=== PATIENT | female | born 1995 | race Two or more races ===

== ENCOUNTER 2024-03-12 15:46 | Emergency (ER) | payer OTHER ==
[~2024-03-12] VITALS: Ht 149.9 cm; Wt 51.4 kg
[2024-03-12 18:10] LABS: BASOPHILS % (AUTO) 0.1 % (0.0-2.0); EOSINOPHILS % (AUTO) 0.7 % (1.0-6.0); HEMOGLOBIN 13.1 g/dL (12.0-16.0); LYMPHOCYTES # (AUTO) 2.1 K/uL (1.0-4.8); LYMPHOCYTES % (AUTO) 18.8 % (22.0-44.0); MEAN CORPUSCULAR HEMOGLOBIN 31.3 pg (26.0-34.0); MEAN CORPUSCULAR HGB CONC 32.8 G/dL (31.0-37.0); MEAN CORPUSCULAR VOLUME 96 fL (80-100); MONOCYTES # (AUTO) 0.4 K/uL (0.1-1.0); MONOCYTES % (AUTO) 3.8 % (2.0-9.0); NEUTROPHILS # (AUTO) 8.5 K/uL (1.8-7.7); NEUTROPHILS % (AUTO) 76.6 % (40.0-70.0); PLATELET COUNT (AUTO) 257 K/uL (150-450); RED BLOOD CELL COUNT(AUTO) 4.19 MIL/uL (4.00-5.20); RED CELL DISTRIBUTION WIDTH 12.7 % (11.5-14.5); WHITE BLOOD COUNT (AUTO) 11.1 K/uL (4.5-11.0)
[2024-03-12 18:22] LABS: ANION GAP 6 mmol/L (8-16); CALCIUM, TOTAL 9.9 mg/dL (8.8-10.5); CARBON DIOXIDE 31 mmol/L (22-29); CHLORIDE 104 mmol/L (98-107); CREATININE 0.58 mg/dL (0.60-1.30); GLOMERULAR FILTR. RATE CALC > 60 mL/min (>60); GLUCOSE,RANDOM 89 mg/dL (70-110); POTASSIUM 4.2 mmol/L (3.5-5.1); SODIUM SERUM 141 mmol/L (136-145); UREA NITROGEN, BLOOD 19 mg/dL (7-18)
[2024-03-12 18:31] LABS: HCG,QUANTITATIVE 2 mIU/mL (0-6); LIPASE 67 U/L (16-77)
[2024-03-12 19:28] LABS: APPEARANCE,URINE HAZY (CLEAR); BILIRUBIN,URINE NEGATIVE (NEGATIVE); COLOR,URINE YELLOW (YELLOW); GLUCOSE, URINE (UA) NEGATIVE (NEGATIVE); LEUKOCYTE ESTERASE ,URINE LARGE (NEGATIVE); NITRATE,URINE NEGATIVE (NEGATIVE); OCCULT BLOOD,URINE SMALL (NEGATIVE); PH,URINE 5.5 (5.0-8.0); PROTEIN,URINE 30-70 mg/dL (NEGATIVE); UROBILINOGEN,URINE <=1.0 mg/dL (<=1.0)
[2024-03-12 19:41] LABS: BACTERIA,URINE Moderate /HPF (None Seen); SQUAMOUS EPITHELIAL CELL,UR Moderate /LPF (None Seen); WBC,URINE 26-50 /HPF (0-5)
[2024-03-12 20:01] LABS: ALBUMIN 4.3 g/dL (3.4-5.0); BILIRUBIN,DIRECT 0.1 mg/dL (0.00-0.20); BILIRUBIN,TOTAL 0.3 mg/dL (0.1-1.0); TOTAL PROTEIN, SERUM 8.2 g/dL (6.4-8.2)
[2024-03-12] MEDS: ONDANSETRON HCL 4 MG/2 ML VIAL IVP ONE (20:24)
[2024-03-12] MEDS: SODIUM CHLORIDE 0.9% 1,000 ML IV ONE (20:24)
[2024-03-12] MEDS: FAMOTIDINE 20 MG/2 ML VIAL IVP ONE (20:24)
[2024-03-12] MEDS ORDERED: ONDA-104 PO (21:40)
[2024-03-12] MEDS ORDERED: CEPH-558 PO (21:40)
[2024-03-12] MEDS: CefTRIAXone 1 GM/DEXTROSE 50 ML IV ONE (21:48)
[2024-03-12 22:00] VITALS: BP 100/71; PULSE 62; RESP 16; TEMP 97.8
== END 2024-03-12 22:03 | disposition home or self-care (01) ==
LOC: EMS 15:46
DX: K80.20 Calculus of gallbladder without cholecystitis without obstruction (principal); N39.0 Urinary tract infection, site not specified; R10.13 Epigastric pain; R11.10 Vomiting, unspecified
CPT/HCPCS: 80048; 80076; 81001; 83690; 84702; 85025; 36415; 87086; 87186; 76700; 99285; 96361; 96365; 96375; J0696; J3490; J2405; J7030

== ENCOUNTER 2024-07-08 11:02 | Emergency (ER) | payer OTHER ==
[~2024-07-08] VITALS: Ht 149.9 cm; Wt 68.2 kg
[~2024-07-08 11:02] MED LIST: CEPH-558 PO; ONDA-104 PO
[2024-07-08 11:08] VITALS: TEMP 97.7
[2024-07-08] MEDS: IBUPROFEN 600 MG TABLET PO ONE (12:01)
[2024-07-08] MEDS: BACLOFEN 10 MG TABLET PO ONE (12:02)
[2024-07-08] MEDS: ACETAMINOPHEN 500 MG TABLET PO ONE (12:02)
[2024-07-08] MEDS ORDERED: IBUP-1492 PO (14:48)
[2024-07-08] MEDS ORDERED: BACL10TA PO (14:48)
[2024-07-08 17:11] VITALS: BP 127/76; PULSE 72; RESP 18; O2SAT 100
== END 2024-07-08 17:20 | disposition home or self-care (01) ==
LOC: EMS 11:02
DX: R07.9 Chest pain, unspecified (principal); M54.2 Cervicalgia; Z87.19 Personal history of other diseases of the digestive system; V89.2XXA Person injured in unspecified motor-vehicle accident, traffic, initial encounter; Y93.89 Activity, other specified; Y92.410 Unspecified street and highway as the place of occurrence of the external cause; Y99.8 Other external cause status
CPT/HCPCS: 71046; 72040; 99284